=== PATIENT | female | born 1965 ===

== ENCOUNTER → 2017-12-03 | Outpatient (CLI) | payer OTHER | END | disposition home or self-care (01) | LOC: RX STUDY 09:49 | DX: R10.13 Epigastric pain (principal) ==

== ENCOUNTER 2017-12-08 07:35 | Outpatient (CLI) | payer OTHER | END 2017-12-08 07:40 | disposition home or self-care (01) | LOC: RX STUDY 07:35 | DX: R10.13 Epigastric pain (principal) ==